=== PATIENT | female | born 1930 | race Caucasian/White ===

== ENCOUNTER → 2017-11-08 | Emergency (ER) | payer OTHER ==
[~2017-11-08] VITALS: Ht 157.5 cm; Wt 59.0 kg
[~2017-11-08] MED LIST: LOSARTAN POTASS50 MG; SYNTHROID50 MCG
== END | disposition left against medical advice (07) ==
LOC: ER 15:47
DX: R07.0 Pain in throat (principal); M54.2 Cervicalgia; T17.298A Other foreign object in pharynx causing other injury, initial encounter; X58.XXXA Exposure to other specified factors, initial encounter; Y93.89 Activity, other specified; Y92.89 Other specified places as the place of occurrence of the external cause; Y99.8 Other external cause status